=== PATIENT | male | born 1975 | race Two or more races ===

== ENCOUNTER 2022-12-05 00:06 | Emergency (ER) | payer SELFPAY ==
[2022-12-05] VITALS (13 sets, daily range): BP systolic 110–148; BP diastolic 71–101; PULSE 68–91; RESP 16–20; TEMP 36.2–36.6; O2SAT 95–98; BMI 26.4
--- NOTE | 2022-12-05 00:20 | ED.NURSE ---
Pt's hand placed in sterile gauze.
--- NOTE | 2022-12-05 00:29 | CRLHL7_ITS ---
For Patients: As a result of the Cures Act, medical imaging exams and procedure reports are released immediately into your electronic medical record. You may view this report before your referring provider. If you have questions, please contact your health care provider. Indication: Trauma. Technique: Right hand, 3 views. Comparison: None. Findings/Impression: Bones: Acute minimally displaced oblique fracture of the 3rd digit distal phalanx. Acute mildly displaced horizontal fracture of the 4th digit distal phalanx. Joint spaces: Unremarkable. Soft tissues: Associated soft tissue swelling. Dictated by Ender Toscano MD @ 12/05/2022 12:53:57 AM (Electronically Signed)
[2022-12-05] MEDS: OXYCODONE 5 MG TABLET PO (00:34)
--- NOTE | 2022-12-05 00:34 | ED.GENADULT ---
HPI - General Adult General Chief complaint: Extremity Pain/Injury, Upper Stated complaint: Finger Injury Time Seen by Provider: 12/05/22 00:12 Source: patient Mode of arrival: ambulatory Limitations: no limitations History of Present Illness HPI narrative: 46-year-old male reports that he was working on a industrial machine that he cannot seem to describe very well for me. He reports that the machine has a safety mechanism where when the door is open, some sort of a spinning mechanical part is supposed to stop immediately. He reports that he opened the door, expecting the mechanical part to stop. He reached his hand in and his 4th and 5th fingers were caught on the machine. He noticed immediate pain. There was immediate bleeding. He reports that he has no sensation on the finger tips. Does not take any anticoagulants, no history of neurological injury or prior surgery to this area. No pain in the wrist or proximal hand. Lacerations noted to the 4th and 5th finger, circumferential. He reports no significant past medical history, no long-term medications or allergies. No intoxication tonight. ROS is negative for other skin, neurological, musculoskeletal issues. No injuries to the other hand. Related Data Home Medications Medication Instructions Recorded Confirmed No Known Home Medications 12/05/22 12/05/22 Allergies Allergy/AdvReac Type Severity Reaction Status Date / Time No Known Drug Allergies Allergy Verified 12/05/22 00:14 [facility] Medical History (Updated 12/05/22 @ 00:14 by Perla Segura RN) Patient denies medical problems ?Z78.9 - Other specified health status (ICD-10) Social History Smoking Status: Unknown if ever smoked Exam Const: Vital Signs, click to edit/add: Vital Signs - 24 hr 12/05/22 00:11 12/05/22 00:15 12/05/22 00:30 Temperature 97.9 F Pulse Rate 80 74 Pulse Rate [Left] 91 Respiratory Rate 20 Blood Pressure Blood Pressure [Le ft Upper Arm] 139/101 H Pulse Oximetry 96 96 96 Oxygen Delivery Me thod Room Air Room Air 12/05/22 00:31 12/05/22 00:46 12/05/22 01:00 Temperature Pulse Rate 81 82 77 Pulse Rate [Left] Respiratory Rate Blood Pressure 126/75 Blood Pressure [Le ft Upper Arm] Pulse Oximetry 98 96 95 Oxygen Delivery Me thod 12/05/22 01:02 Temperature Pulse Rate 89 Pulse Rate [Left] Respiratory Rate Blood Pressure 148/92 H Blood Pressure [Le ft Upper Arm] Pulse Oximetry 95 Oxygen Delivery Me thod Documenting provider has reviewed patient's vital signs: yes Common normals: no apparent distress General appearance: cooperative and well kempt HENMT: Common normals: normocephalic Head and scalp: normocephalic Mouth: oral and palatal mucosa normal Eye: General eye: normal appearance of both eyes Resp: Common normals: normal respiratory effort Effort & inspection: able to speak in complete sentences Cardio: Common normals: regular rate and regular rhythm Rate: regular rate Rhythm: regular rhythm Other: Normal radial pulses bilaterally Extremity: Other: Obvious injury with deep lacerations, circumferential around the distal phalanx of the 3rd and 4th fingers of the right hand. Hemostatic at the moment, no obvious arterial injury. He does not have sensation to the tip of the finger but can abduct and adduct the fingers and bend at the proximal interphalangeal joint and MCP joints. The wrist is normal, proximal hand is normal. Neuro: Other: Impaired sensation and movement at distal 3rd and 4th fingertips Psych: Appearance: well kempt Activity/motor behavior: appropriate eye contact Insight: insight good Judgement: judgment good Skin: Narrative: Deep circumferential lacerations 3rd and 4th fingers. Course Course ED Course: Concern for significant neurovascular injury to 3rd and 4th fingers of right hand. Stat x-ray, will likely need transfer to trauma center. Discussed pain medication, was agreeable to oxycodone 5 mg p.o. x1. Reevaluation(s) Time of Reevaluation #1: 01:00 Reevaluation #1: Called to [facility], awaiting call back Time of Reevaluation #2: 01:12 Reevaluation #2: Spoke with Dr. York from [facility]. He was agreeable to transfer. Will give Td booster prior to transport and start 2 g of Ancef IV x1. Awaiting callback from ED team for acceptance of transfer. Time of Reevaluation #3: 01:18 Reevaluation #3: Transfer accepted. Will transfer by ALS ground. Vital Signs Vital signs: Initial Vital Signs Temperature 97.9 F 12/05/22 00:11 Temperature Source Temporal Artery Scan 12/05/22 00:11 Pulse Rate 91 12/05/22 00:11 Respiratory Rate 20 12/05/22 00:11 Blood Pressure 139/101 H 12/05/22 00:11 Blood Pressure Mean 113 H 12/05/22 00:11 Blood Pressure Position Sitting 12/05/22 00:11 Pulse Oximetry 96 12/05/22 00:11 Oxygen Delivery Method Room Air 12/05/22 00:11 Vital Signs Temperature 97.9 F 12/05/22 00:11 Pulse Rate 91 12/05/22 00:11 Respiratory Rate 20 12/05/22 00:11 Blood Pressure 139/101 H 12/05/22 00:11 Pulse Oximetry 96 12/05/22 00:11 Oxygen Delivery Method Room Air 12/05/22 00:11 Temperature 97.9 F 12/05/22 00:11 Pulse Rate 89 12/05/22 01:02 Respiratory Rate 12/05/22 00:11 Blood Pressure 148/92 H 12/05/22 01:02 Pulse Oximetry 95 12/05/22 01:02 Oxygen Delivery Method Room Air 12/05/22 00:15 Medical Decision Making Imaging Data Hand x-ray: Attestation: I have reviewed the pertinent imaging results. My impression: Complicated fractures of distal 3rd and 4th fingers Radiologist's impression: Bones: Acute minimally displaced oblique fracture of the 3rd digit distal phalanx. Acute mildly displaced horizontal fracture of the 4th digit distal phalanx. Joint spaces: Unremarkable. Soft tissues: Associated soft tissue swelling. Discharge Plan Discharge Prescriptions: No Action No Known Home Medications
[2022-12-05] MEDS: CEFAZOLIN 2 GM in 0.9 % SODIUM CHLORIDE Mini-bag 100 ML IVPB (01:50)
== END 2022-12-05 02:26 | disposition short-term general hospital (02) ==
PROVIDERS: Emergency Provider Family Medicine
DX: S61.214A Laceration without foreign body of right ring finger without damage to nail, initial encounter (principal); S61.212A Laceration without foreign body of right middle finger without damage to nail, initial encounter; W31.9XXA Contact with unspecified machinery, initial encounter; Z23 Encounter for immunization
CPT/HCPCS: 73130; 90471; 90714; 96365; 96372; 99283; 99284; A9270; J0690

== ENCOUNTER 2022-12-05 02:21 | Outpatient (CLI) | payer SELFPAY | END 2022-12-05 02:22 | disposition home or self-care (01) | LOC: AMB 01-07 15:51 | PROVIDERS: Visit Provider Family Medicine | DX: S67.21XS Crushing injury of right hand, sequela (principal); W31.89XS Contact with other specified machinery, sequela; Y92.89 Other specified places as the place of occurrence of the external cause | CPT/HCPCS: A0425; A0428 ==